=== PATIENT | male | born 1950 | race Caucasian/White ===

== ENCOUNTER 2020-03-04 05:12 | Day surgery (SDC) | payer OTHER ==
[2020-03-04 09:23] VITALS: BMI 27.9
[2020-03-04 10:04] VITALS: TEMP 97.5
[2020-03-04 10:24] VITALS: BP 108/70; PULSE 67
== END 2020-03-04 10:45 | disposition home or self-care (01) ==
LOC: JASU-ENDO 05:12
PROVIDERS: ATTEND Internal Medicine Gastroenterology
PROC: 0DJD8ZZ Inspection of Lower Intestinal Tract, Via Natural or Artificial Opening Endoscopic (ICD-10-PCS; principal; 2020-03-04 09:00)
DX: Z12.11 Encounter for screening for malignant neoplasm of colon (principal); Z53.8 Procedure and treatment not carried out for other reasons

== ENCOUNTER → 2020-04-08 | Day surgery (SDC) | payer OTHER ==
[2020-04-03 15:55] VITALS: BMI 28.6
== END | disposition home or self-care (01) ==
LOC: JASU-ENDO 05:07
PROVIDERS: ATTEND Internal Medicine Gastroenterology
PROC: 0DJD8ZZ Inspection of Lower Intestinal Tract, Via Natural or Artificial Opening Endoscopic (ICD-10-PCS; principal; 2020-04-08)
DX: Z12.11 Encounter for screening for malignant neoplasm of colon (principal); Z53.8 Procedure and treatment not carried out for other reasons

== ENCOUNTER 2021-05-26 04:59 | Day surgery (SDC) | payer OTHER ==
[2021-05-22 14:49] VITALS: BMI 29.9
[2021-05-26 13:04] VITALS: TEMP 97
[2021-05-26 13:50] VITALS: BP 139/72; PULSE 82
== END 2021-05-26 13:50 | disposition home or self-care (01) ==
LOC: JASU-ENDO 04:59
PROVIDERS: ATTEND Internal Medicine Gastroenterology
PROC: 0DBM8ZX Excision of Descending Colon, Via Natural or Artificial Opening Endoscopic, Diagnostic (ICD-10-PCS; principal; 2021-05-26 11:45)
DX: Z12.11 Encounter for screening for malignant neoplasm of colon (principal); D12.4 Benign neoplasm of descending colon; K64.8 Other hemorrhoids; K63.89 Other specified diseases of intestine; Z86.010 Personal history of colon polyps

== ENCOUNTER 2024-01-03 04:21 | Day surgery (SDC) | payer OTHER ==
[2024-01-02 10:46] VITALS: BMI 20.9
[2024-01-03 09:22] VITALS: TEMP 98
[2024-01-03 09:56] VITALS: BP 125/66; PULSE 66; RESP 14
== END 2024-01-03 10:10 | disposition home or self-care (01) ==
LOC: JASU-ENDO 04:21
PROVIDERS: ATTEND Internal Medicine Gastroenterology
PROC: 0DBN8ZX Excision of Sigmoid Colon, Via Natural or Artificial Opening Endoscopic, Diagnostic (ICD-10-PCS; 2024-01-03)
PROC: 0DBH8ZX Excision of Cecum, Via Natural or Artificial Opening Endoscopic, Diagnostic (ICD-10-PCS; 2024-01-03)
PROC: 0DBK8ZX Excision of Ascending Colon, Via Natural or Artificial Opening Endoscopic, Diagnostic (ICD-10-PCS; principal; 2024-01-03 08:00)
DX: Z12.11 Encounter for screening for malignant neoplasm of colon (principal); Z11.0 Encounter for screening for intestinal infectious diseases; Z12.2 Encounter for screening for malignant neoplasm of respiratory organs; D12.5 Benign neoplasm of sigmoid colon; K64.8 Other hemorrhoids; Z86.010 Personal history of colon polyps
CPT/HCPCS: 88305-TC

== ENCOUNTER 2025-03-12 06:23 | Day surgery (SDC) | payer OTHER ==
[2025-01-23 10:01] VITALS: BMI 27.9
[2025-03-12 09:02] VITALS: RESP 16; TEMP 98.1
[2025-03-12 09:40] VITALS: PULSE 64
[2025-03-12 09:41] VITALS: BP 132/69
== END 2025-03-12 10:05 | disposition home or self-care (01) ==
LOC: JASU-ENDO 06:23
PROVIDERS: ATTEND Internal Medicine Gastroenterology
PROC: 0DBH8ZX Excision of Cecum, Via Natural or Artificial Opening Endoscopic, Diagnostic (ICD-10-PCS; principal; 2025-03-12 08:00)
DX: Z12.11 Encounter for screening for malignant neoplasm of colon (principal); D12.0 Benign neoplasm of cecum; Z86.0100 Personal history of colon polyps, unspecified
CPT/HCPCS: 88305-TC